=== PATIENT | female | born 1970 | race Caucasian/White ===

== ENCOUNTER → 2018-12-18 | Outpatient (CLI) | payer OTHER ==
--- NOTE | 2018-12-18 21:12 | DIREP ---
PROCEDURE:XRAY SHOULDER MIN 2 VWS-LT COMPARISON:None. INDICATIONS:PAIN IN LEFT SHOULDER FINDINGS:Frontal internal and externally rotated views of the shoulder. BONES:Normal. JOINTS:Normal glenohumeral and acromioclavicular joints. No evidence for dislocation. SOFT TISSUES:Normal. OTHER:Normal. CONCLUSION:No acute visible fracture. See above description. Dictated by: Elton Yin MD on 12/18/2018 at 09:10 PM
== END | disposition home or self-care (01) ==
LOC: RAD 18:49
PROVIDERS: ATTEND Nurse Practitioner Family
DX: M25.512 Pain in left shoulder (principal)
CPT/HCPCS: 73030-LT